=== PATIENT | female | born 1970 | race Caucasian/White ===

== ENCOUNTER 2020-08-22 09:53 | Outpatient (REF) | payer OTHER, SELFPAY ==
--- NOTE | 2020-08-22 | MM_ITS ---
EXAMINATION: MM SCREENING DIGITAL BREAST TOMOSYNTHESIS, BILATERAL CLINICAL INFORMATION: Screening. Asymptomatic. Family history in both mother and sister, both BRCA negative. The lifetime risk of breast cancer based on the Tyrer-Cuzick Model is 10%. COMPARISON: Mammography: 08/17/2019, 07/18/2016 TECHNIQUE: Digital breast tomosynthesis is performed in both the craniocaudal and mediolateral oblique views along with computer-aided detection (CAD). Synthesized 2D images are generated from the tomosynthesis. FINDINGS: There are scattered areas of fibroglandular density (ACR BI-RADS breast composition Category b). Breast tissue composition borders on heterogeneously dense. There is no significant mass or architectural abnormality. No abnormal calcifications. There is stable circumscribed nodularity mid 9:00 right breast and posterior right upper outer quadrant, likely intramammary nodes. The axilla and skin contours are unremarkable. IMPRESSION: No mammographic evidence of malignancy. ASSESSMENT: BI-RADS 2: Benign RECOMMENDATION: Routine annual mammography screening. This patient's information was entered into a reminder system with a target due date for their next mammogram.
== END 2020-08-22 09:54 | disposition home or self-care (01) ==
LOC: HO.MAMMO 09:53
PROVIDERS: PCP Internal Medicine; Visit Provider Internal Medicine
DX: Z12.31 Encounter for screening mammogram for malignant neoplasm of breast (principal)
CPT/HCPCS: 77063; 77067

== ENCOUNTER 2021-10-16 11:07 | Outpatient (REF) | payer BC, SELFPAY ==
--- NOTE | ~2021-10-16 | MM_ITS ---
EXAMINATION: MM SCREENING DIGITAL BREAST TOMOSYNTHESIS, BILATERAL CLINICAL INFORMATION: Screening. Asymptomatic. The lifetime risk of breast cancer based on the Tyrer-Cuzick Model is 28.9%. Additional annual screening with breast MRI may be of benefit in women with a Score of 20% or greater. COMPARISON: Mammography: August 22, 2020 and studies dating back to March 04, 2014 TECHNIQUE: Digital breast tomosynthesis is performed in both the craniocaudal and mediolateral oblique views along with computer-aided detection (CAD). Synthesized 2D images are generated from the tomosynthesis. FINDINGS: The breasts are heterogeneously dense, which may obscure small masses (ACR BI-RADS breast composition Category c). There are no significant masses, abnormal calcifications, or other abnormalities. MM/MM tomosynthesis screening BI IMPRESSION: There are no significant changes from prior study. ASSESSMENT: BI-RADS 1: Negative RECOMMENDATION: Routine annual mammography screening. This patient's information was entered into a reminder system with a target due date for their next mammogram.
== END 2021-10-16 11:08 | disposition home or self-care (01) ==
LOC: HO.MAMMO 11:07
PROVIDERS: PCP Internal Medicine; Visit Provider Internal Medicine
DX: Z12.31 Encounter for screening mammogram for malignant neoplasm of breast (principal)
CPT/HCPCS: 77063; 77067

== ENCOUNTER 2022-02-28 08:18 | Outpatient (REF) | payer BC, SELFPAY ==
[2022-02-28 11:17] LABS: MANUAL DIFF FLAG NO
[2022-02-28 11:27] LABS: Basophils Absolute Auto 0.1 X10*3/uL (0.0-0.2); Eosinophils Absolute Auto 0.2 X10*3/uL (0.0-0.4); Eosinophils Percent Auto 3.3 % (0-4); Hematocrit 39.9 % (37.0-47.0); Hemoglobin 13.7 g/dl (12.0-16.0); Imm Gran Abs Auto 0.01 X10*3/uL (0.00-0.03); Imm Gran Pct Auto 0.2 % (0.0-0.4); Lymphocytes Absolute Auto 1.4 X10*3/uL (1.2-4.9); Lymphocytes Percent Auto 22.4 % (20-40); Mean Corpuscular HGB Conc 34.3 g/dl (31.0-35.0); Mean Corpuscular Hemoglobin 31.4 pg (27.0-33.0); Mean Corpuscular Volume 91.3 fL (80.0-98.0); Mean Platelet Volume 9.8 fL (9.4-12.3); Monocytes Absolute Auto 0.6 X10*3/uL (0.1-1.2); Monocytes Percent Auto 9.1 % (2-11); Neutrophils Absolute Auto 3.9 x10*3/uL (2.0-8.3); Platelet Count 329 X10*3/uL (160-400); Red Blood Count 4.37 X10*6/uL (4.20-5.50); White Blood Count 6.2 X10*3/uL (4.8-10.8)
[2022-02-28 11:44] LABS: Alanine Aminotransferase 17 U/L (0-31); Albumin Level 4.1 g/dL (3.5-5.0); Alkaline Phosphatase 80 U/L (39-117); Anion Gap 15 (12-20); Aspartate Amino Transferase 19 U/L (5-31); Bilirubin Total 0.6 mg/dL (0.0-1.0); Blood Urea Nitrogen 11 mg/dL (9-16); Calcium 9.6 mg/dL (8.4-10.2); Carbon Dioxide 22 mmol/L (22-29); Chloride 105 mmol/L (96-108); Cholesterol 206 mg/dL; Estimated Glomerular Filt Rate > 60; Glucose Fasting 107 mg/dL (60-99); HDL Cholesterol 42 mg/dL; LDL Cholesterol Calculated 149 mg/dl; Sodium 138 mmol/L (135-145); Triglycerides 76 mg/dL
[2022-02-28 12:09] LABS: Thyroid Stimulating Hormone 3.15 uIU/mL (0.32-4.0)
== END 2022-02-28 08:19 | disposition home or self-care (01) ==
LOC: HO.HMGCLDS 08:18
PROVIDERS: Visit Provider Internal Medicine
DX: Z00.00 Encounter for general adult medical examination without abnormal findings (principal); E03.9 Hypothyroidism, unspecified
CPT/HCPCS: 36415; 80053; 80061; 84439; 84443; 85025

== ENCOUNTER 2022-11-28 10:18 | Outpatient (REF) | payer BC, SELFPAY ==
--- NOTE | ~2022-11-28 | MM_ITS ---
EXAMINATION: MM SCREENING DIGITAL BREAST TOMOSYNTHESIS, BILATERAL CLINICAL INFORMATION: Screening. Asymptomatic. The lifetime risk of breast cancer based on the Tyrer-Cuzick Model is 26.5%. Additional annual screening with breast MRI may be of benefit in women with a lifetime score of 20% or greater. COMPARISON: Mammography: October 16, 2021 and studies dating back to December 18, 2012 TECHNIQUE: Digital breast tomosynthesis is performed in both the craniocaudal and mediolateral oblique views along with computer-aided detection (CAD). Synthesized 2D images are generated from the tomosynthesis. FINDINGS: The breasts are heterogeneously dense, which may obscure small masses (ACR BI-RADS breast composition Category c). There are no new significant masses, abnormal calcifications, or other abnormalities. MM/MM tomosynthesis screening BI IMPRESSION: No significant changes ASSESSMENT: BI-RADS 1: Negative RECOMMENDATION: Routine annual mammography screening. This patient's information was entered into a reminder system with a target due date for their next mammogram.
== END 2022-11-28 10:19 | disposition home or self-care (01) ==
LOC: HO.MAMMO 10:18
PROVIDERS: PCP Internal Medicine; Visit Provider Internal Medicine
DX: Z12.31 Encounter for screening mammogram for malignant neoplasm of breast (principal)
CPT/HCPCS: 77063; 77067

== ENCOUNTER 2024-01-09 11:14 | Outpatient (REF) | payer BC, SELFPAY | END 2024-01-09 11:15 | disposition home or self-care (01) | LOC: HO.MAMMO 11:14 | PROVIDERS: PCP Internal Medicine; Visit Provider Internal Medicine | DX: Z12.31 Encounter for screening mammogram for malignant neoplasm of breast (principal) | CPT/HCPCS: 77063; 77067 ==

== ENCOUNTER → 2024-01-09 11:15 | Outpatient (BNV) | payer BC, SELFPAY | PROVIDERS: PCP Internal Medicine; Visit Provider Radiology Diagnostic Radiology | DX: Z12.31 Encounter for screening mammogram for malignant neoplasm of breast (principal) | CPT/HCPCS: 77063; 77067 ==

== ENCOUNTER 2024-04-16 09:15 | Outpatient (REF) | payer BC, SELFPAY ==
[2024-04-16 10:47] LABS: MANUAL DIFF FLAG NO
[2024-04-16 11:01] LABS: Basophils Absolute Auto 0.1 X10*3/uL (0.0-0.2); Basophils Percent Auto 1.3 % (0-2); Eosinophils Absolute Auto 0.3 X10*3/uL (0.0-0.4); Eosinophils Percent Auto 5.6 % (0-4); Hemoglobin 13.3 g/dl (12.0-16.0); Imm Gran Abs Auto 0.01 X10*3/uL (0.00-0.03); Imm Gran Pct Auto 0.2 % (0.0-0.4); Lymphocytes Absolute Auto 1.6 X10*3/uL (1.2-4.9); Lymphocytes Percent Auto 30.3 % (20-40); Mean Corpuscular HGB Conc 34.1 g/dl (31.0-35.0); Mean Corpuscular Hemoglobin 30.6 pg (27.0-33.0); Mean Corpuscular Volume 89.7 fL (80.0-98.0); Mean Platelet Volume 9.6 fL (9.4-12.3); Monocytes Absolute Auto 0.3 X10*3/uL (0.1-1.2); Monocytes Percent Auto 6.4 % (2-11); Neutrophils Percent Auto 56.2 % (45-73); Platelet Count 335 X10*3/uL (160-400); Red Blood Count 4.35 X10*6/uL (4.20-5.50); Red Cell Distribution Width 11.8 % (11.0-16.0); White Blood Count 5.3 X10*3/uL (4.8-10.8)
[2024-04-16 11:49] LABS: Anion Gap 10 (12-20); Blood Urea Nitrogen 11 mg/dL (9-16); Calcium 9.7 mg/dL (8.4-10.2); Carbon Dioxide 28 mmol/L (22-29); Chloride 108 mmol/L (96-108); Cholesterol 211 mg/dL (<200); Estimated Glomerular Filt Rate > 60; Glucose Random 105 mg/dL (60-115); HDL Cholesterol 43 mg/dL (>40); LDL Cholesterol Calculated 149 mg/dL (<100); Potassium 3.7 mmol/L (3.3-5.1); Sodium 142 mmol/L (135-145); Triglycerides 98 mg/dL (<150)
[2024-04-16 11:50] LABS: Free T4 (Free Thyroxine) 0.86 ng/dL (0.71-1.85); Thyroid Stimulating Hormone 3.57 uIU/mL (0.32-4.0); Vitamin D 25-OH Total 27.9 ng/mL (>30)
== END 2024-04-16 09:16 | disposition home or self-care (01) ==
LOC: HO.HMGCLDS 09:15
PROVIDERS: PCP Internal Medicine; Visit Provider Internal Medicine
DX: Z00.00 Encounter for general adult medical examination without abnormal findings (principal); E78.00 Pure hypercholesterolemia, unspecified; E03.9 Hypothyroidism, unspecified
CPT/HCPCS: 36415; 80048; 80061; 82306; 84439; 84443; 85025

== ENCOUNTER 2024-04-20 11:29 | Outpatient (REF) | payer BC, SELFPAY ==
--- NOTE | ~2024-04-20 | XR_ITS ---
EXAMINATION: XR KNEE, LEFT CLINICAL INFORMATION: Osteoarthritis of left knee COMPARISON: None available. TECHNIQUE: Four views of the left knee. FINDINGS: There is significant narrowing of medial compartment of left knee joint with varus deformity of left knee and marginal spurring of the medial tibial plateau. There is spurring of the patella also. XR/XR knee LT 4V IMPRESSION: Marked degenerative changes in the medial compartment of left knee joint with varus deformity
== END 2024-04-20 11:30 | disposition home or self-care (01) ==
LOC: HO.XRAY 11:29
PROVIDERS: PCP Internal Medicine; Visit Provider Internal Medicine
DX: M25.662 Stiffness of left knee, not elsewhere classified (principal)
CPT/HCPCS: 73564

== ENCOUNTER 2024-08-12 09:53 | Outpatient (AMB) | payer BC, SELFPAY ==
--- NOTE | 2024-08-12 09:56 | A.OFFVIS_ITS ---
Vital Signs 08/12/24 09:57 Height 5 ft 8 in Weight 200 lb BMI 30.4 Intake Visit Reasons: New Pt - Left Knee Pain Intake Note: Natalya is a 54 year old female who presents today as a new patient with complaints of Left knee pain. She was referred by her PCP, Dr. Colindres. Patient reports that she has had ongoing left knee pain, she has pain with gait initiation after long periods of sitting or when waking. 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 No previous treatment. She takes Tylenol and Ibuprofen PRN pain. Allergies Penicillins Allergy (Verified 08/12/24 09:59) Hives HPI HPI New Pt - Left Knee Pain: Details: Natalya is a 54 year old female who presents today as a new patient with complaints of Left knee pain. She was referred by her PCP, Dr. Colindres. Patient reports that she has had ongoing left knee pain, she has pain with gait initiation after long periods of sitting or when waking. 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 No previous treatment. She takes Tylenol and Ibuprofen PRN pain. 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 Varus thrust with gait Office Procedures Joint Injection/Aspiration Joint Injection/Aspiration Details: Injected 1 mL of Decadron and 3 mL 1% lidocaine and 3 mL of 0.25% Marcaine. Site was prepped using aseptic technique. Patient tolerated the procedure well. Primary Site: left knee Approach Used: anterolateral Coding 95295 - Large joint Procedure code (CPT) selection complete Results Reviewed Results Reviewed: I personally reviewed relevant radiographs. Severe left knee varus pattern osteoarthritis Assessment & Plan Assessment & Plan (1) Osteoarthritis of left knee: Code(s): M17.12 - Unilateral primary osteoarthritis, left knee Category: Medical Plan: This is a 54-year-old woman with left knee osteoarthritis. Other than her poor gait mechanics her pain is not terrible and she feels like she is wants to continue working rather than intervene surgically. I think this is reasonable and mantilla given her age. I injected her left knee today. She can follow up in 3 months for repeat injections if so desired. (2) Varus deformity of knee: Code(s): M21.169 - Varus deformity, not elsewhere classified, unspecified knee Category: Medical Plan: Her primary problem is the severity of her varus. There is no bone loss and I do not think this is actively getting worse but I do think at some point in time she will require arthroplasty. I explained this to her. Coding Level of Care Code New Pt Level 3 (07276) Complex EM visit Add On G2211 Diagnoses Osteoarthritis of left knee M17.12 Varus deformity of knee M21.169 CPT Codes Coding - 48520 Large joint: 16985 - Large joint ([id number])
[2024-08-12 09:57] VITALS: BMI 30.4
== END 2024-08-12 10:42 | disposition home or self-care (01) ==
PROVIDERS: PCP Internal Medicine; Visit Provider Orthopaedic Surgery
DX: M17.12 Unilateral primary osteoarthritis, left knee (principal); M21.169 Varus deformity, not elsewhere classified, unspecified knee
CPT/HCPCS: 20610; 99203

== ENCOUNTER → 2024-08-12 09:53 | Outpatient (BNVA) | payer BC, SELFPAY | PROVIDERS: PCP Internal Medicine; Visit Provider Orthopaedic Surgery | DX: M17.12 Unilateral primary osteoarthritis, left knee (principal); M21.162 Varus deformity, not elsewhere classified, left knee | CPT/HCPCS: 20610; J0665; J1100; J2003 ==

== ENCOUNTER 2024-11-18 09:14 | Outpatient (AMB) | payer BC, SELFPAY ==
[2024-11-18 09:16] VITALS: BMI 30.4
--- NOTE | 2024-11-18 09:16 | MHC.OFFVIS ---
Vital Signs 11/18/24 09:16 Height 5 ft 8 in Weight 200 lb BMI 30.4 Intake Visit Reasons: OV-Left Knee Pain/OA-3 month follow up Intake Note: Natalya is a 54 year old female who presents today for a follow up of her left knee OA with varus deformity. Last Injection: 08/12/2024. Patient reports that this injection was helpful for about a month, she continues to have some mild discomfort with walking. She no longer is having pain at night. Allergies Penicillins Allergy (Verified 08/12/24 09:59) Hives HPI HPI OV-Left Knee Pain/OA-3 month follow up: Details: Natalya is a 54 year old female who presents today for a follow up of her left knee OA with varus deformity. Last Injection: 08/12/2024. Patient reports that this injection was helpful for about a month, she continues to have some mild discomfort with walking. She no longer is having pain at night. Overall her pain is significantly less than it was at last visit. She works all day and has pain at the end of the night and pain after sitting for extended periods of time but it is tolerable. She tries to exercise but has a busy schedule. 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 Varus thrust with gait Office Procedures Joint Inj/Aspir; Non-Pain Clin Joint Injection/Drain Details: Injected 1 mL of Decadron and 3 mL 1% lidocaine and 3 mL of 0.25% Marcaine. Site was prepped using aseptic technique. Patient tolerated the procedure well. Shoulders, Hips, Knees, Knee Large Joint Injection : Left Knee Coding Procedure code (CPT) selection complete Assessment & Plan Assessment & Plan (1) Osteoarthritis of left knee: Code(s): M17.12 - Unilateral primary osteoarthritis, left knee Category: Medical Plan: Left knee osteoarthritis. We discussed treatment options including bracing, NSAIDs, at exercise, surgery. I injected her left knee today. We will see her back in 4 months. Coding Level of Care Code Est Pt Level 3 (70600) Diagnoses Osteoarthritis of left knee M17.12 CPT Codes Shoulders, Hips, Knees, - Knee Large Joint Injection : Left Knee ([id number])
== END 2024-11-18 10:07 | disposition home or self-care (01) ==
PROVIDERS: PCP Internal Medicine; Visit Provider Orthopaedic Surgery
DX: M17.12 Unilateral primary osteoarthritis, left knee (principal)
CPT/HCPCS: 20610; 99213

== ENCOUNTER → 2024-11-18 09:14 | Outpatient (BNVA) | payer BC, SELFPAY | PROVIDERS: PCP Internal Medicine; Visit Provider Orthopaedic Surgery | DX: M17.12 Unilateral primary osteoarthritis, left knee (principal) | CPT/HCPCS: 20610; J0665; J1100; J2003 ==

== ENCOUNTER 2025-02-17 08:32 | Outpatient (REF) | payer BC, SELFPAY | END 2025-02-17 08:33 | disposition home or self-care (01) | LOC: HO.MAMMO 08:32 | PROVIDERS: PCP Internal Medicine; Visit Provider Internal Medicine | DX: Z12.31 Encounter for screening mammogram for malignant neoplasm of breast (principal) | CPT/HCPCS: 77063; 77067 ==

== ENCOUNTER → 2025-02-17 08:45 | Outpatient (BNV) | payer BC, SELFPAY | PROVIDERS: PCP Internal Medicine; Visit Provider Internal Medicine | DX: Z12.31 Encounter for screening mammogram for malignant neoplasm of breast (principal) | CPT/HCPCS: 77063; 77067 ==

== ENCOUNTER 2025-03-24 10:21 | Outpatient (AMB) | payer BC, SELFPAY ==
--- NOTE | 2025-03-24 10:30 | MHC.OFFVIS ---
Intake Visit Reasons: OV-Left Knee OA last inj 11/18/24 Intake Note: Natalya is a 55 year old female who presents today for a follow up of her Left Knee OA with Varus Deformity. Last injection 11/18/2024. Patient reports that the last injection did not help her and has had side effects of nausea and dizziness. She is interested in talking about alternative treatment option. Allergies Penicillins Allergy (Verified 08/12/24 09:59) Hives HPI HPI OV-Left Knee OA last inj 11/18/24: Details: The patient is a 55-year-old female presenting with left knee pain due to osteoarthritis. She reports increased pain after prolonged sitting, alleviated slightly by a prior injection, with only limited improvement. The patient walks up to an hour, spending eight hours daily on her feet for work. She describes functional difficulty walking, exacerbated in the morning. Severe arthritis is noted on imaging, with varus thrust observed. She prefers to delay surgical intervention but deems it necessary soon. Contemplation of non-surgical management includes gel injections and bracing. The patient inquires about lifestyle changes but indicates limited time due to work. 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 Varus thrust with gait Assessment & Plan Assessment & Plan (1) Osteoarthritis of left knee: Code(s): M17.12 - Unilateral primary osteoarthritis, left knee Category: Medical Plan: Severe osteoarthritis confirmed by imaging. Recommend intra-articular gel injections as insurance permits. Plan for an unloading brace for stability during activity. Progressive arthritis warrants eventual total knee replacement, discussed risks and benefits, delay per patient preference. Follow-up for brace fitting, suggested periknee muscle strengthening for improved symptoms, time permitting. Coding Level of Care Code Est Pt Level 3 (78291) Diagnoses Osteoarthritis of left knee M17.12
== END 2025-03-24 11:14 | disposition home or self-care (01) ==
LOC: HO.HOS 10:22
PROVIDERS: PCP Internal Medicine; Visit Provider Orthopaedic Surgery
DX: M17.12 Unilateral primary osteoarthritis, left knee (principal)
CPT/HCPCS: 99213

== ENCOUNTER → 2025-03-24 10:21 | Outpatient (BNVA) | payer BC, SELFPAY | PROVIDERS: PCP Internal Medicine; Visit Provider Orthopaedic Surgery ==

== ENCOUNTER 2025-05-23 08:54 | Outpatient (AMB) | payer BC, SELFPAY ==
[2025-05-23 09:22] VITALS: BP 122/76; PULSE 98; TEMP 37.2; O2SAT 97; BMI 29.8
--- NOTE | 2025-05-23 09:22 | AM.OFFWIN_ITS ---
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 Pt reports pain located on the back of Thigh, knee and Calf. Describes the pain as sharp and pressure.She does have severe OA left Knee and sees [facility]. She did receive two Cortisone injections with no relief. She is waiting to have Gel Injections - pending Insurance coverage. She has been using Ice/Hot with minimal relief. 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 - [employer] Review of Systems Const All systems reviewed & are unremarkable except as noted in HPI and below Physical Exam Vital Signs: Last Vital Signs Temp 99.0 F 05/23/25 09:22 Pulse 98 05/23/25 09:22 BP 122/76 05/23/25 09:22 Pulse Ox 97 05/23/25 09:22 Oxygen Delivery Method Room Air 05/23/25 09:22 BMI result Body Mass Index 29.8 Const General: no acute distress Nutritional Appearance: obese Orientation/consciousness: patient oriented x3 Neuro General: patient oriented x3, gait normal and moves all extremities Extrem Left lower extremity: knee Details: normal to inspection, tenderness Location: of the patella and normal ROM and lower leg Details: normal to inspection, tenderness and no edema; no erythema Assessment & Plan Assessment & Plan (1) Osteoarthritis of left knee: Code(s): M17.12 - Unilateral primary osteoarthritis, left knee Qualifiers: Osteoarthritis type: primary Qualified Code(s): M17.12 - Unilateral primary osteoarthritis, left knee Plan: Ordered NSAIDs and Acetaminophen. Diclofenac Gel Continue F/U with Orthopedics. Ordered Knee Brace. Medications: New acetaminophen 1,000 mg (2 x 500 mg) PO Q6H 30 caps 0RF pain M17.12 - Unilateral primary osteoarthritis, left knee diclofenac potassium 50 mg PO BID 14 tabs 0RF 7 days M17.12 - Unilateral primary osteoarthritis, left knee Coding Level of Care Code Est Pt Level 4 (85187) Diagnoses Primary osteoarthritis of left knee M17.12 Osteoarthritis type: primary Time Spent (min) 20
== END 2025-05-23 10:35 | disposition home or self-care (01) ==
PROVIDERS: PCP Internal Medicine; Visit Provider Nurse Practitioner Family
DX: M17.12 Unilateral primary osteoarthritis, left knee (principal)

== ENCOUNTER 2025-05-26 08:41 | Outpatient (AMB) | payer BC, SELFPAY ==
--- NOTE | 2025-05-26 08:46 | MHC.OFFVIS ---
Intake Visit Reasons: OV-severe knee OA, LT knee-disc possible surgery Intake Note: Natalya is a 55 year old female who presents today for a follow up of her Left Knee OA. Patient reports that she was doing well but on friday her pain started to increase with pain running down the leg to the foot. She was seen at urgent care where they provided her with a brace. She does feel that the brace is helping with stability. She does not recall any injury. Allergies Penicillins Allergy (Verified 05/26/25 08:49) Hives HPI HPI OV-severe knee OA, LT knee-disc possible surgery: Details: Natalya comes in today with continued left knee pain. I saw her previously a few months ago and she had minimal pain but has had a severe gait disturbance for some time. She is adamant that she can not stop working at this time and consequently has hesitated to undergo surgical intervention. Now she comes in today complaining of hamstring tightness and pain in his walking even worse. She states that her hamstring is cramping up at night she is having difficulty sleeping is very frustrated. 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 Her gait is extremely poor she has a severe varus thrust and leans over her left leg significantly when she ambulates. On examination of her hamstring she has tightness in the body of the hamstring without any palpable defect. Her deformity is not correctable. Results Reviewed Results Reviewed: I personally reviewed relevant radiographs. Severe varus abnormality with loss of medial joint space left knee. Assessment & Plan Assessment & Plan (1) Varus deformity of knee: Code(s): M21.169 - Varus deformity, not elsewhere classified, unspecified knee Category: Medical Plan: Jamar is a 55-year-old woman with severe varus deformity and arthritis of her left knee. She can not ambulate in any normal fashion and this is causing problems with her back and her hamstring and her energy expenditure. She has exhausted by the end of the day and not sleeping. Think that it is clear she would benefit from arthroplasty. I discussed this with her again. I strongly recommend that she consider it and that she would have to take off approximately 6 weeks at a minimum. I also discussed the risks, benefits and alternatives including , but not limited to, the risk of infection, need further surgery, stiffness, aseptic loosening, medical complications associated with surgery such as blood clots, pulmonary emboli or cardiopulmonary complications. She expressed understanding and would like to proceed forward. In the meantime I have written her a prescription physical therapy and recommend hydration and that she use a cane to help her ambulate. (2) Osteoarthritis of left knee: Code(s): M17.12 - Unilateral primary osteoarthritis, left knee Category: Medical Qualifiers: Osteoarthritis type: primary Qualified Code(s): M17.12 - Unilateral primary osteoarthritis, left knee Plan: See above Orders: Orders PT Evaluation and Treatment Today M21.169 - Varus deformity, not elsewhere classified, unspecified knee, M62.89 - Other specified disorders of muscle Coding Level of Care Code Est Pt Level 4 (48310) Diagnoses Varus deformity of knee M21.169 Primary osteoarthritis of left knee M17.12 Osteoarthritis type: primary
== END 2025-05-26 09:58 | disposition home or self-care (01) ==
LOC: HO.HOS 08:41
PROVIDERS: PCP Internal Medicine; Visit Provider Orthopaedic Surgery
DX: M21.162 Varus deformity, not elsewhere classified, left knee (principal); M17.12 Unilateral primary osteoarthritis, left knee
CPT/HCPCS: 99214

== ENCOUNTER 2025-06-14 09:00 | Outpatient (RCR) | payer BC, SELFPAY ==
--- NOTE | 2025-06-08 08:38 | MHC.PT.EP ---
[facility] [place] Office [place] Office [place] Office [address] Marla Schumacher [address] [phone] F: [phone] F: [phone] F: [phone] F: [phone] Physical Therapy Plan of Care Date of Evaluation: 06/08/25 Date of Surgery: n/a Diagnosis: hamstring tightness of L LE Assessment: Patient is a 55 year old female presenting to PT with complaints of pain in L hamstring. Pt reports onset of pain began about 1 month ago due to insidious onset but notes she does have severe OA in the L knee causing her to have antalgic gait. She presents today with impairments in pain, soft tissue restrictions, tingling, hip strength, knee strength. 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 Clinical presentation today is most consistent with signs and sx associated with L hamstring tightness and pt will benefit from skilled PT 2 week x 4 weeks to address the following problems and impairments noted upon evaluation: pain, soft tissue restrictions, tingling, hip strength, knee strength. These problems limit the patient with the following functional activities: work, standing, ambulating, stair negotiation, ADLs. The prescribed treatment plan of care is medically necessary. Co-morbidities of L knee OA were identified and taken into considerations of plan of care. Pt was educated on HEP, role of PT, prognosis, POC. Frequency and Duration: The patient will be seen 2 x week x 4 weeks Short Term Goals: Pt will demonstrate improved hip MMT strength by 1/3 grade in 2 weeks. Pt will report less tingling in 2 weeks. Pt will demonstrate improved knee MMT strength on L in 2 weeks. Jail Goals: Pt will demonstrate improved LEFI score by 9 points in 4 weeks for improved functional mobility. Pt will demonstrate ability to ambulate with less hs pain in 4 weeks for return to PLOF. Pt will demonstrate improved tolerance to work standing in terms of hs pain in 4 weeks for return to PLOF. Treatment Plan: Modalities to reduce pain, spasms and effusion. Manual therapy to restore motion and function. Therapeutic exercise to improve strength and flexibility. Neuromuscular re-education for posture and balance. Therapeutic activities to return to functional activities of daily living. Electronically signed by: Jennifer Mathis, PT, DPT, ATC Please sign and return to therapist. Thank you for your referral.
--- NOTE | 2025-07-26 07:35 | MHC.PT.DC ---
[facility] [place] Office [place] Office [place] Office [address] [phone] F: [phone] F: [phone] F: [phone] F: [phone] Physical Therapy Discharge Report Diagnosis: hamstring tightness of L LE Date of Surgery: n/a Date of Evaluation: 06/08/25 Date of Discharge: 07/26/25 Treatments to Date: 2 Cancellations to Date: 2 No Shows to Date: 0 Discharge Status: Discharge Summary: Pt has not attended skilled PT in >30 days so therefore to be d/c per policy. Electronically signed by: Jennifer Mathis, PT, DPT, ATC Please sign and return to therapist. Thank you for your referral.
== END 2025-07-26 07:35 | disposition home or self-care (01) ==
LOC: HO.PTCHIC 09:00
PROVIDERS: PCP Internal Medicine; Visit Provider Orthopaedic Surgery
DX: M21.162 Varus deformity, not elsewhere classified, left knee (principal); M62.89 Other specified disorders of muscle
CPT/HCPCS: 97110; 97140; 97161

== ENCOUNTER 2025-07-27 06:08 | Outpatient (REF) | payer BC, SELFPAY ==
[2025-07-27 10:22] LABS: MANUAL DIFF FLAG NO
[2025-07-27 10:36] LABS: Hematocrit 36.0 % (37.0-47.0); Hemoglobin 12.3 g/dl (12.0-16.0); Imm Gran Abs Auto 0.00 X10*3/uL (0.00-0.03); Imm Gran Pct Auto 0.0 % (0.0-0.4); Lymphocytes Absolute Auto 1.2 X10*3/uL (1.2-4.9); Mean Corpuscular HGB Conc 34.2 g/dl (31.0-35.0); Mean Corpuscular Hemoglobin 30.8 pg (27.0-33.0); Mean Corpuscular Volume 90.2 fL (80.0-98.0); NRBC Abs Auto 0.000 X10*3/uL (0.0-0.012); NRBC Pct Auto 0.0 /100WBC (0.0-0.2); Platelet Count 354 X10*3/uL (160-400); Red Blood Count 3.99 X10*6/uL (4.20-5.50); White Blood Count 3.9 X10*3/uL (4.8-10.8)
[2025-07-27 10:43] LABS: Alanine Aminotransferase 18 U/L (0-31); Albumin Level 4.4 g/dL (3.5-5.0); Alkaline Phosphatase 78 U/L (39-117); Anion Gap 11 (12-20); Aspartate Amino Transferase 24 U/L (5-31); Blood Urea Nitrogen 12 mg/dL (9-16); Calcium 9.4 mg/dL (8.4-10.2); Carbon Dioxide 25 mmol/L (22-29); Chloride 110 mmol/L (96-108); Cholesterol 180 mg/dL (<200); Estimated Glomerular Filt Rate > 60; HDL Cholesterol 36 mg/dL (>40); INTERNATIONAL NORM RATIO 1.0 (0.9-1.1); Potassium 3.7 mmol/L (3.3-5.1); Prothrombin Time 11.0 SEC (10.9-12.4); Sodium 142 mmol/L (135-145); Total Protein 6.9 g/dL (6.5-8.0); Triglycerides 95 mg/dL (<150)
[2025-07-27 10:46] LABS: Partial Thromboplastin Time 34.8 SEC (26.7-34.1)
== END 2025-07-27 06:09 | disposition home or self-care (01) ==
LOC: HO.HMGCLDS 06:08
PROVIDERS: PCP Physician Assistant Medical; Visit Provider Physician Assistant Medical
DX: Z01.818 Encounter for other preprocedural examination (principal); E78.5 Hyperlipidemia, unspecified
CPT/HCPCS: 36415; 80053; 80061; 84443; 85025; 85610; 85730

== ENCOUNTER 2025-08-01 11:01 | Outpatient (AMB) | payer BC, SELFPAY ==
--- NOTE | 2025-08-01 11:01 | MHC.PC.OV ---
Vital Signs 08/01/25 11:03 Height 5 ft 8 in Weight 194 lb BMI 29.5 BP 134/72 Blood Pressure Location Rt brachial Position Sitting Respiration 17 Pulse 89 Pulse Source Pulse Oximeter Temp 97.6 F Temp Source Temporal Artery Scan Pulse Oximetry (%) 98 Oxygen Delivery Method Room Air Intake Visit Reasons: Annual EXAM/PRE-OP - see comments Dental Ceramist Helper Required: No Accompanied by: Self / Same As Patient Allergies Penicillins Allergy (Verified 08/01/25 11:01) Hives Medication List - Last Reconciled 08/01/25 by RAMO Corral cholecalciferol (vitamin D3) 50 mcg PO DAILY [Folding Front Wheeled walker Duration: 99 days] levothyroxine 50 mcg PO DAILY Tobacco use date assessed: 08/01/25 Dental Screening Dental Screen Date: 08/01/25 Did you have a dental visit in the last 12 months?: Yes Did you have a dental problem in the last 6 months where you did not have access to dental care?: Yes Was dental information given to patient?: Patient has dentist HPI HPI Comments History of Present Illness Details 55 year old female with Hypothyroidism, and left knee pain here to establish care and for Pre Op. Patient is on Levothyroxine 50mcg. Her TSH was 2.39 07/27/25. Her labs did also show a mild anemia but were otherwise normal. She has osteoarthritis of her left knee. She is scheduled for a total knee replacement on 09/27/25 with Sanket Webster MD. She has not had any prior surgeries. She has no history of bleeding issues. Her BP today was 134/72. She has been taking Omeprazole for GERD symptoms. She is also on Vitamin D 3. Her last PAP was several years ago. She has never had an abnormal PAP. She had a mammogram 02/17/25. She has never had colon cancer screening. She is open to doing a cologuard. 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 1. Little interest or pleasure in doing things: not at all 2. Feeling down, depressed, or hopeless: not at all 3. Trouble falling or staying asleep, or sleeping too much: several days 4. Feeling tired or having little energy: not at all 5. Poor appetite or overeating: not at all 6. Feeling bad about yourself - or that you are a failure or have let yourself or your family down: not at all 7. Trouble concentrating on things, such as reading the newspaper or watching television: not at all 8. Moving or speaking so slowly that other people could have noticed. Or the opposite - being so fidgety or restless that you have been moving around a lot more than usual: not at all 9. Thoughts that you would be better off or of hurting yourself in some way: not at all Total score: 1 Source: Developed by Drs. Eren Hoffman, Eliane Titus, Momo Sheets and colleagues, with an educational jose from [employer]. Thrive Questionnaire Date Thrive assessed: 08/01/25 I am a: Patient What is your living situation today?: I have a steady place to live Within the past 12 months, did the food you bought not last and you didn't have the money to get more?: Never true Within the past 12 months, did you worry whether your food would run out before you got money to buy more?: Never true Do you have trouble paying for medicines?: No Do you have trouble getting transportation to medical appointments?: No Do you have trouble paying your heating and electricity bill?: No Do you have trouble taking care of your child, family member or friend?: No Do you have trouble with day-to-day activities such as bathing, preparing meals, shopping, managing finances, etc.?: No Are you currently unemployed and looking for a job?: No Are you interested in more education?: No THRIVE Score: 0 AUDIT C Alcohol Use Questionnaire (AUDIT-C) 1. How often do you have a drink containing alcohol?: Never 3. How often do you have six or more drinks on one occasion?: Never Total Score: 0 BECCA-7 AMB Questionnaire BECCA-7 Date BECCA - 7 assessed: 08/01/25 Feeling nervous, anxious, or on edge: 0 = Not at all Not being able to stop or control worryin = Not at all Worrying too much about different things: 0 = Not at all Trouble relaxin = Not at all Being so restless that it is hard to sit still: 0 = Not at all Becoming easily annoyed or irritable: 0 = Not at all Feeling afraid as if something awful might happen: 0 = Not at all Total BECCA-7 score (0-4 normal; 5-9 mild; 10-14 moderate; 15-21 severe): 0 Source: Developed by Drs. Eren Hoffman, Eliane Titus, Momo Sheets and colleagues, with an educational jose from [employer]. Review of Systems Const Details: CONSTITUTIONAL No Chills No Fever No Weight loss No fatigue No generalized weakness SKIN No itching No skin lesions EYES No change in visual acuity No eye pain No red eye HEAD AND NECK No dizziness No headache No neck pain EAR/NOSE/MOUTH/THROAT No earache No sinus pain No congestion No hoarseness No sore throat RESPIRATORY No cough No shortness of breath No wheezing CARDIOVASCULAR No chest pain No dyspnea No palpitations No peripheral edema No Syncope GASTROINTESTINAL No abdominal pain No constipation No diarrhea Heartburn- controlled on Omeprazole No loss of appetite No nausea No vomiting GENITOURINARY No dysuria No hematuria No urinary frequency No urinary urgency ENDOCRINE No cold intolerance No excessive hunger No excessive thirst No change in hair texture MUSCULOSKELETAL No back pain Left knee pain No swelling No myalgias IMMUNOLOGICAL/ALLERGIC No congestion No itchy eyes No itchy nose No rhinitis No watery eyes HEMATOLOGIC No bleeding tendencies No bruising No fatigue LYMPHATIC No swollen lymph nodes NEUROLOGICAL No memory loss No paresthesias No focal weakness PSYCHIATRIC No anxiety No depression No sleeping problems No substance abuse No suicidal ideation Physical exam (Primary Care) Vital Signs: Last Vital Signs Temp 97.6 F 08/01/25 11:03 Pulse 89 08/01/25 11:03 Resp 17 08/01/25 11:03 BP 134/72 08/01/25 11:03 Pulse Ox 98 08/01/25 11:03 Oxygen Delivery Method Room Air 08/01/25 11:03 BMI result Body Mass Index 29.5 GENERAL Well Developed, Overweight, In no acute distress HEENT Head- Normocephalic, atraumatic Eyes- PERRLA, EOMI, Conjuctiva-WNL, Lids-WNL Ears- Canals- Clear, TMs- WNL Nose-Straight, Nares Patent OroPharynx-Mouth WNL, Tongue- no lesions, throat no erythema or exudate Neck- Supple, no lymphadenopathy, thyroid WNL CARDIOVASCULAR Heart- Regular rate and Rhythm without murmur Extremities- No edema RESPIRATORY Normal chest movement, clear to auscultation ABDOMINAL/GI Nondistended, soft, nontender, normal bowel sounds, no masses, no hepatosplenomegaly GENITOURINARY No CVA tenderness BACK Straight, normal ROM, mild tenderness in left lateral thoracic with some muscle tightness MUSCULOSKELETAL left knee pain and swelling VASCULAR No JVD, Dorasalis pedis and Posterior Tibialis pulses normal and symmetrical DERMATOLOGY No rashes, no significant skin lesions, skin turgor WNL NEUROLOGICAL Cranial Nerves 11-x11 grossly intact, gait WNL, Coordination WNL, Muscle strength normal and Symmetrical, DTR normal and symmetrical, Light touch sensation intact PSYCHIATRIC Mood and affect WNL, Oriented to person, place and time Tobacco/Smoking Status: Tobacco use Status Tobacco use date assessed 08/01/25 08/01/25 11:04 Patient Tobacco Use Status Never used Tobacco 08/01/25 11:04 e-Cigarette/Vaping Use Never Used 08/01/25 11:10 Results Reviewed Results Reviewed: Labs and mammogram reviewed EKG was normal Coding Level of Care Code Established Pt Est Pt Level 4 (79058) Patient Type Established Diagnoses Pre-op evaluation Z01.818 Primary osteoarthritis of left knee M17.12 Osteoarthritis type: primary Hypothyroidism E03.9 GERD without esophagitis K21.9 Mild anemia D64.9 Time Spent (min) 35 Comment Time spent on chart review, medication reconciliation, results review, H&P, patient ed Assessment & Plan Assessment & Plan (1) Pre-op evaluation: Code(s): Z01.818 - Encounter for other preprocedural examination Plan: Patient is scheduled for Total knee replacement on 09/27/25. Reviewed medications with patient. Patient is OK for total knee. (2) Osteoarthritis of left knee: Code(s): M17.12 - Unilateral primary osteoarthritis, left knee Category: Medical Qualifiers: Osteoarthritis type: primary Qualified Code(s): M17.12 - Unilateral primary osteoarthritis, left knee Plan: Patient is scheduled for left total knee replacement on 09/27/25. (3) Hypothyroidism: Comment: TSH was 2.39 on 07/27 Code(s): E03.9 - Hypothyroidism, unspecified Category: Medical Plan: Controlled. Patient will continue current medications. Will monitor. Patient will follow up in 3-4 months (4) GERD without esophagitis: Code(s): K21.9 - Gastro-esophageal reflux disease without esophagitis Category: Medical Plan: Will continue Omeprazole. Patient to follow up in 3-4 months or sooner if symptoms persist or worsen. (5) Mild anemia: Code(s): D64.9 - Anemia, unspecified Category: Medical Plan: Will give Multivitamin with Iron. Patient to follow up in 3-4 months or sooner if symptoms persist or worsen. Medications: New cholecalciferol (vitamin D3) 50 mcg PO DAILY 90 caps 3RF omeprazole 20 mg PO DAILY 90 caps 3RF multivitamin-ferrous sulfate 18 mg iron (One Daily Multivitamin with Iron) with food 1 tab PO DAILY 90 tabs 0RF levothyroxine 50 mcg PO DAILY 90 tabs 1RF
[2025-08-01 11:03] VITALS: BP 134/72; PULSE 89; RESP 17; TEMP 36.4; O2SAT 98; BMI 29.5
== END 2025-08-01 12:15 | disposition home or self-care (01) ==
PROVIDERS: PCP Physician Assistant Medical; Visit Provider Physician Assistant Medical
DX: M17.12 Unilateral primary osteoarthritis, left knee (principal); E03.9 Hypothyroidism, unspecified; K21.9 Gastro-esophageal reflux disease without esophagitis; D64.9 Anemia, unspecified; Z01.818 Encounter for other preprocedural examination

== ENCOUNTER → 2025-08-23 13:06 | Outpatient (BNVA) | payer BC, SELFPAY | PROVIDERS: PCP Physician Assistant Medical | DX: Z01.818 Encounter for other preprocedural examination (principal) ==

== ENCOUNTER 2025-09-07 14:11 | Outpatient (REF) | payer BC, SELFPAY ==
--- NOTE | ~2025-09-07 | CT_ITS ---
EXAMINATION: CT KNEE WITHOUT CONTRAST, LEFT CLINICAL INFORMATION: Unilateral primary osteoarthritis left knee. COMPARISON: None available. TECHNIQUE: Axial 2 mm thin imaging of left knee was performed as per [facility] protocol This CT examination was performed using dose optimization techniques as appropriate, variously including the following: *Automated exposure control *Adjustment of mA and/or kV according to patient size (this includes techniques or standardized protocols for targeted exams where dose is matched to indication/reason for exam; i.e. extremities or head) *Use of iterative reconstruction technique DLP: 492 mGy/cm. FINDINGS/ CT/CT knee LT wo IV con IMPRESSION: Imaging of left knee was performed as per [facility] protocol for Dr. Sanket Webster. No interpretation was needed. Electronically signed by: Morgan Falcon MD 09/07/2025 03:16 PM EDT
== END 2025-09-07 14:12 | disposition home or self-care (01) ==
LOC: HO.CT 14:11
PROVIDERS: PCP Physician Assistant Medical; Visit Provider Physician Assistant
DX: M17.12 Unilateral primary osteoarthritis, left knee (principal)
CPT/HCPCS: 73700

== ENCOUNTER → 2025-09-07 14:12 | Outpatient (BNV) | payer BC, SELFPAY | PROVIDERS: PCP Physician Assistant Medical; Visit Provider Radiology Diagnostic Radiology | DX: M17.12 Unilateral primary osteoarthritis, left knee (principal) | CPT/HCPCS: 73700 ==

== ENCOUNTER 2025-09-22 14:22 | Outpatient (AMB) | payer BC, SELFPAY ==
--- NOTE | 2025-09-22 14:41 | A.OFFVIS_ITS ---
Vital Signs 09/22/25 14:56 Height 5 ft 8 in Weight 194 lb BMI 29.5 Handedness Right Intake Visit Reasons: Pre-Op: L TKA w/NE 09/28/25 Intake Note: Natalya is a 55 year old female who presents today for a pre op appointment for her left total knee arthroplasty 09/28/25 NE. Patient was given the pain management forms to sign. Allergies Penicillins Allergy (Intermediate, Verified 09/22/25 14:56) Hives HPI HPI Pre-Op: L TKA w/NE 09/28/25: Details: The patient is a 55-year-old female with a history of end-stage osteoarthritis of the left knee who is scheduled for a total knee arthroplasty. They have experienced progressive knee pain for over 1 year. Pain is described as aching/sharp/throbbing, worsened by prolonged standing, walking, and stair climbing. Conservative treatments including physical therapy, NSAIDs, bracing, activity modification, and corticosteroid injections provided only temporary or minimal relief. The patient reports significant limitations in daily activities and decreased quality of life due to pain and stiffness. No recent history of trauma or infection. They are otherwise in their usual state of health. The patient was seen by her PCP Edith Sharpe PA-C, on 08/01/2025 and was medically cleared to proceed with left total knee arthroplasty. Of note, the patient was a bit anemic and therefore her PCP prescribed a multivitamin with iron at this appointment. Additionally, patient had her PAT testing on 08/29/2025: No recent illness, noCP/SOB, medically cleared by PCP on 08/01/2025, has never undergone anesthesia in the past,GERD controlled with daily PPI. EKG 07/2025 NSR HR:84. Allergy to PCN: Hives. 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 Antalgic gait. Severe varus deformity. Crepitus felt with range of motion. NVI. Psych Appearance: grossly normal Mental Status: mental status grossly normal Attitude: cooperative Assessment & Plan Assessment & Plan (1) Osteoarthritis of left knee: Code(s): M17.12 - Unilateral primary osteoarthritis, left knee Category: Medical Qualifiers: Osteoarthritis type: primary Qualified Code(s): M17.12 - Unilateral primary osteoarthritis, left knee Plan The patient is a 55-year-old female with a history of end-stage osteoarthritis of the left knee who is scheduled for a total knee arthroplasty. They have experienced progressive knee pain for over 1 year. Pain is described as aching/sharp/throbbing, worsened by prolonged standing, walking, and stair climbing. Conservative treatments including physical therapy, NSAIDs, bracing, activity modification, and corticosteroid injections provided only temporary or minimal relief. The patient reports significant limitations in daily activities and decreased quality of life due to pain and stiffness. No recent history of trauma or infection. They are otherwise in their usual state of health. The patient was seen by her PCP Edith Sharpe PA-C, on 08/01/2025 and was medically cleared to proceed with left total knee arthroplasty. Of note, the patient was a bit anemic and therefore her PCP prescribed a multivitamin with iron at this appointment. Additionally, patient had her PAT testing on 08/29/2025: No recent illness, noCP/SOB, medically cleared by PCP on 08/01/2025, has never undergone anesthesia in the past,GERD controlled with daily PPI. EKG 07/2025 NSR HR:84. Allergy to PCN: Hives. I discussed in detail the procedure and what to expect pre and post operatively. We discussed the risks, benefits and alternatives to the surgery as well as the rehabilitation course. The following topics were reviewed in detail with the patient: Risks: Risks include, but are not limited to infection, bleeding, blood clots, nerve injury, ongoing pain, ongoing swelling, ongoing stiffness, perioperative risk of injury to bones and soft tissues, prosthesis loosening or wear, anesthesia related complications, revision surgery, amputation, and mortality. Expected Benefits: Improved function, reduced pain, better quality of life. Alternatives: Continued non-operative treatment, joint injections, bracing, physical therapy or no surgery. Risks of not moving forward with surgery: Progression of joint disease and damage, worsening function, fracture, and/or pain. The patient had ample opportunity to ask questions. All questions were answered to the patient's satisfaction. The patient verbalized understanding and agreed to move forward with left total knee arthroplasty with Dr. Webster. The patient demonstrates understanding of the risks, benefits and alternatives. The surgical consent form was given to the patient for additional review and signed by the patient with myself as a witness. postoperative recovery notes: ASA for DVT ppx Out Patient P.T.: [facility] [place] - Order placed Walker obtained Anemia baseline: Labs 07/27/ H&H: 12.3/36.0 Orders: Orders XR knee LT 3V Today M25.569 - Pain in unspecified knee Type and Screen Today Z01.818 - Encounter for other preprocedural examination Basic Metabolic Panel Today Z01.818 - Encounter for other preprocedural examination Complete Blood Count no Diff Today Z01.818 - Encounter for other preprocedural examination Medications: Refilled [Folding Front Wheeled walker] Duration: 99 days 1 ea 0RF M17.12 - Unilateral primary osteoarthritis, left knee Coding Level of Care Code Global (76455) Diagnoses Primary osteoarthritis of left knee M17.12 Osteoarthritis type: primary
[2025-09-22 14:56] VITALS: BMI 29.5
== END 2025-09-22 15:14 | disposition home or self-care (01) ==
LOC: HO.HOS 14:22
PROVIDERS: PCP Internal Medicine; Visit Provider Physician Assistant
DX: M17.12 Unilateral primary osteoarthritis, left knee (principal)
CPT/HCPCS: 99024

== ENCOUNTER → 2025-09-22 14:25 | Outpatient (BNV) | payer BC, SELFPAY | PROVIDERS: PCP Physician Assistant Medical; Visit Provider Radiology Diagnostic Ultrasound | DX: M17.12 Unilateral primary osteoarthritis, left knee (principal) | CPT/HCPCS: 73562 ==

== ENCOUNTER 2025-09-22 15:32 | Outpatient (REF) | payer BC, SELFPAY ==
--- NOTE | ~2025-09-22 | XR_ITS ---
EXAMINATION: XR KNEE, LEFT CLINICAL INFORMATION: M25.569 - Pain in unspecified knee COMPARISON: None available. TECHNIQUE: Two views of the left knee. AP bilateral knees one view FINDINGS: Left knee: Severe medial compartment arthritis. Genu varus. Arthritis to a lesser degree in the lateral patellofemoral compartment. No acute fracture or dislocation. No effusion. No abnormal soft tissue calcification. Right knee: Mild-moderate medial compartment arthritis. XR/XR knee LT 3V IMPRESSION: Left knee: Severe medial compartment arthritis. Electronically signed by: Brannon Shepard MD 09/23/2025 11:49 AM ALF
[2025-09-22 17:14] LABS: Hematocrit 40.5 % (37.0-47.0); Hemoglobin 13.7 g/dl (12.0-16.0); Mean Corpuscular HGB Conc 33.8 g/dl (31.0-35.0); Mean Corpuscular Hemoglobin 31.1 pg (27.0-33.0); Mean Corpuscular Volume 92.0 fL (80.0-98.0); NRBC Abs Auto 0.000 X10*3/uL (0.0-0.012); NRBC Pct Auto 0.0 /100WBC (0.0-0.2); Platelet Count 327 X10*3/uL (160-400); Red Blood Count 4.40 X10*6/uL (4.20-5.50); White Blood Count 5.8 X10*3/uL (4.8-10.8)
[2025-09-22 18:14] LABS: Anion Gap 13 (12-20); Blood Urea Nitrogen 10 mg/dL (9-16); Calcium 9.6 mg/dL (8.4-10.2); Carbon Dioxide 26 mmol/L (22-29); Chloride 107 mmol/L (96-108); Estimated Glomerular Filt Rate > 60; Potassium 3.7 mmol/L (3.3-5.1); Sodium 142 mmol/L (135-145)
== END 2025-09-22 15:33 | disposition home or self-care (01) ==
LOC: HO.HOSX 15:32
PROVIDERS: PCP Physician Assistant Medical; Visit Provider Physician Assistant
DX: Z01.818 Encounter for other preprocedural examination (principal); M17.12 Unilateral primary osteoarthritis, left knee
CPT/HCPCS: 36415; 73562; 80048; 85027

== ENCOUNTER 2025-09-28 10:51 | Day surgery (SDC) | payer BC, SELFPAY ==
[2025-08-29 10:12] VITALS: BP 119/64; PULSE 83; RESP 20; O2SAT 97; BMI 29.8
--- NOTE | 2025-08-29 10:32 | HO.ANESPROP2 ---
Documented by User: Catrachita Cabello NP 08/29/25 10:42 HPI - Anesthesia Eval Consult details Narrative: 55 yr old female for left total knee replacement scheduled for 09/28/25, seen in [facility] on 08/29. No recent illness No CP/SOB with standing, light walking at work 6 days per week Medically cleared by PCP 08/01/25 Never had anesthesia GERD: on daily PPI, reasonably well controlled per pt PMFSH Active Problems Active Problems: All Active Problems (Updated 08/29/25 @ 10:07 by Emilia Denson RN) Hamstring tightness of left lower extremity (Acute) Varus deformity of knee (Acute) Osteoarthritis of left knee (Acute) Mild anemia (Acute) GERD without esophagitis (Acute) Hypothyroidism (Acute) Past Medical History Medical History Arthritis Mild anemia GERD without esophagitis Hypothyroidism Family History Family history of problems with anesthesia: No Surgical History Surgical History No pertinent past surgical history History of Problems with Anesthesia: No Social History Social History Housing: Apartment Are you a primary group care worker to a significant other at home: No Do you presently have visiting nurse or other home services: No Patient Tobacco Use Status: Never used Tobacco e-Cigarette/Vaping Use: Never Used Use of substances other than those prescribed or required for medical reasons: No Have you been hit, kicked, punched, or otherwise hurt by someone within the past year? 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 - [employer] Meds Allergies Allergy/AdvReac Type Severity Reaction Status Date / Time Penicillins Allergy Intermediate Hives Verified 09/22/25 14:56 Home Medications ?Medication ?Instructions ?Recorded ?Confirmed ?Last Taken ?Type acetaminophen 500 mg tablet 1,000 mg PO Q6H PRN pain 08/29/25 08/29/25 Unknown History cholecalciferol (vitamin D3) 50 50 mcg PO BEDTIME 08/29/25 08/29/25 Unknown History mcg (2,000 unit) capsule ibuprofen 200 mg tablet 400 mg PO Q6H PRN Pain 08/29/25 09/28/25 09/20/25 History levothyroxine 50 mcg tablet 50 mcg PO QAM 08/29/25 09/28/25 09/28/25 History multivitamin-ferrous sulfate 18 mg 1 tab PO BEDTIME 08/29/25 08/29/25 Unknown History tablet (One Daily Multivitamin with Iron) omeprazole 20 mg capsule,delayed 20 mg PO QPM 08/29/25 08/29/25 Unknown History release Exam Height,Weight and Vital Signs: Height 5 ft 8 in Weight 89 kg Last Vital Signs Pulse 83 08/29/25 10:12 Resp 20 08/29/25 10:12 BP 119/64 08/29/25 10:12 Pulse Ox 97 08/29/25 10:12 O2 Del Method Room Air 08/29/25 10:12 Pertinent Lab Results Pertinent Lab Results: Laboratory Tests 07/27/25 06:20 WBC 3.9 L RBC 3.99 L Hgb 12.3 Hct 36.0 L Plt Count 354 Sodium 142 Potassium 3.7 Chloride 110 H Carbon Dioxide 25 BUN 12 Creatinine 0.71 Narrative Narrative: 07/2025 NSR, rate 84 Airway Mallampati Class: III TM Dist: >3cm Neck ROM: Full Loose/Missing/Broken Teeth: Yes, Upper (M) and Lower (M) Heart: RRR Lungs: CTAB Assessment and Plan Final Anesthetic Review Family History of Problems with Anesthesia: No History of Problems with Anesthesia: No Documented by User: Christophe Rouse MD 09/28/25 13:25 [facility] Past Medical History Medical History Arthritis Mild anemia GERD without esophagitis Hypothyroidism Surgical History Surgical History No pertinent past surgical history Social History Social History Housing: Apartment Are you a primary group care worker to a significant other at home: No Do you presently have visiting nurse or other home services: No Patient Tobacco Use Status: Never used Tobacco e-Cigarette/Vaping Use: Never Used Use of substances other than those prescribed or required for medical reasons: No Have you been hit, kicked, punched, or otherwise hurt by someone within the past year? 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 - [employer] Meds Allergies Allergy/AdvReac Type Severity Reaction Status Date / Time Penicillins Allergy Intermediate Hives Verified 09/22/25 14:56 Home Medications ?Medication ?Instructions ?Recorded ?Confirmed ?Last Taken ?Type acetaminophen 500 mg tablet 1,000 mg PO Q6H PRN pain 08/29/25 08/29/25 Unknown History cholecalciferol (vitamin D3) 50 50 mcg PO BEDTIME 08/29/25 08/29/25 Unknown History mcg (2,000 unit) capsule ibuprofen 200 mg tablet 400 mg PO Q6H PRN Pain 08/29/25 09/28/25 09/20/25 History levothyroxine 50 mcg tablet 50 mcg PO QAM 08/29/25 09/28/25 09/28/25 History multivitamin-ferrous sulfate 18 mg 1 tab PO BEDTIME 08/29/25 08/29/25 Unknown History tablet (One Daily Multivitamin with Iron) omeprazole 20 mg capsule,delayed 20 mg PO QPM 08/29/25 08/29/25 Unknown History release Exam Exam Date and Time: 09/28/25 Assessment and Plan Assessment Anesthesia Assessment: Anesthesia Plan Discussed and Chart Reviewed Final Anesthetic Review NPO: Yes ASA Class: II Final Preanesthetic Review: No Changes in Pt Med Stat, Meds/Allgs Chart Reviewed, Consent Obtained/Reviewed and Anes Risks/Benef Reviewed Patient Risk: Low Procedure Risk: Low Anesthetic Plan Anesthetic Plan: GA, MAC:, Spinal, Neuraxial Block: and Regional Block Disposition: Standard PACU
[2025-08-29 12:55] LABS: MRSA Nasal PCR NEGATIVE (Negative); SA Nasal PCR NEGATIVE (Negative)
[2025-09-28] VITALS (9 sets, daily range): BP systolic 97–124; BP diastolic 53–77; PULSE 65–91; RESP 12–19; TEMP 36–37.2; O2SAT 93–97; BMI 28.9; BMI 28.7
--- NOTE | ~2025-09-28 | XR_ITS ---
EXAMINATION: XR KNEE 1-2 VIEWS LEFT HISTORY: S/P Left TKA COMPARISON: Comparison is made with the prior examinations dated 09/22/2025 and 04/20/2024. FINDINGS: AP and lateral portable views of the left knee are submitted from the operating room at 5:27 PM. The patient is status post total knee arthroplasty. The orthopedic elements are in anatomic alignment. Postoperative changes are noted in the soft tissues. XR/XR knee LT 2V IMPRESSION: Status post left total knee arthroplasty. Electronically signed by: Eren Juarez MD 09/29/2025 06:59 AM ALF
[2025-09-28] MEDS: Lactated Ringers 1,000 ML 100 ML IVCONT ×2 (11:23→19:51)
[2025-09-28 11:39] LABS: Hematocrit 37.1 % (37.0-47.0); Hemoglobin 12.6 g/dl (12.0-16.0)
--- NOTE | 2025-09-28 12:38 | MHC.SHP ---
Pre-Procedural Eval Section A - 24 Hr Update-Section A only Date of Service: 09/28/25 The patient is an INPATIENT: No Changes since office visit: No Cold of Flu in the past 2 weeks, No New Medical Problems, No Changes in Medication and No Patient answered all questions The patient has been examined within 24 hours of the surgical procedure. The History & Physical has been completed within 30 days and I have reviewed it.: Yes Section B - Complete if H&P > 30 days Chief Complaint: Unilateral primary osteoarthritis, left knee Allergies: Allergies Allergy/AdvReac Type Severity Reaction Status Date / Time Penicillins Allergy Intermediate Hives Verified 09/22/25 14:56 Plan I have reviewed the history and physical and performed a pertinent physical examination on my patient. No changes have occurred unless specified. Time Spent With Patient Time: Total time managing care of this patient today ____ minutes.
--- NOTE | 2025-09-28 16:54 | P.BOP_ITS ---
Brief Operative Note Date of Service: 09/28/25 Pre-op diagnosis: Left knee OA Post-op diagnosis: same Procedure: Left TKA Implants: Marlene persona 6/D/12ps/35a cemented PS Surgeon: Sanket Webster MD Anesthesia: regional and spinal Was an Invoice Machine Operator used for this Procedure?: Yes Invoice Machine Operator: Nellie Peña Estimated blood loss (mL): 50 Tourniquet time (min): 65 IV fluids (mL): 1,000 Pathology: other Condition: stable Disposition: PACU
--- NOTE | 2025-09-28 18:39 | PHA.MEDREC ---
Addendum entered by Richar Beltran 09/28/25 18:51: Spoke with pt and she verified her medications; list matched what she confirmed. Original Note: Pharmacy Consult ? Medication Reconciliation Pharmacy has completed the medication reconciliation. Reviewed med rec done by nursing in pre-op
--- NOTE | 2025-09-28 18:47 | PC.NURSE ---
Patient arrived to unit from PACU via bed. Patient alert and oriented. Patient has numbness from bilateral hips to toes, patient is able to slightly wiggle bilateral toes but is unable to feeling nurses touch on bilateral lower extremities. Patient reports minimal pain at this time. Duong bandage dressing on left knee, clean, dry and intact with ice packs present. Patient educated to not use pillows under knees and knee raising application locked on bed. Bed alarm on, call montalvo in reach. Patient educated on fall risk status and to not get up without assistance and patient verbalized understanding.
[2025-09-28] MEDS: 0.9 % Sodium Chloride Flush 3 ML SYRINGE IVFLUSH (19:54)
[2025-09-28] MEDS: oxyCODONE HCl ER 10 MG TAB.ER.12H PO (19:56)
--- NOTE | 2025-09-28 22:36 | HO.PM.IMCN ---
History of Present Illness Data of Consult Service Date: 09/28/25 Requesting physician: Sanket Webster Primary Care Provider: RAMO Corral HPI Reason for consult: medical management pt is a 55 yo f with a pmhx significant for hypothyroid, GERD and anemia, now s/p L TKA, hospitalist consult placed for medical management. medical hx and medications reviewed. she denies any acute medical concerns including chest pain, SOB, nausea, vomiting, abd pain, headache, visual changes or urinary sx. Review of Systems Constitutional: Constitutional: Denies body ache(s), Denies chills, Denies fatigue and Denies headache(s) Eyes: Eyes: Denies change in vision ENT: Denies headache(s), Denies nasal congestion and Denies sore throat Cardiovascular: Cardiovascular: Denies chest pain, Denies rapid heart rate, Denies leg edema, Denies lightheadedness and Denies dyspnea Respiratory: Respiratory: Denies chest congestion, Denies cough, Denies dyspnea and Denies wheezing Gastrointestinal: Gastrointestinal: Denies abdominal pain, Denies diarrhea, Denies nausea and Denies vomiting Genitourinary: Genitourinary: Denies difficulty voiding, Denies dysuria and Denies urinary urgency Musculoskeletal: Musculoskeletal: Denies back pain Integumentary/Breasts: Skin/Breast: Denies rash Neurologic: Denies confusion and Denies headache(s) Psychiatric: Psychiatric: Denies confusion Endocrine: Endocrine: Denies fatigue Hematologic/Lymphatic: Hematologic/Lymphatic: Denies easy bleeding Allergic/Immunologic: Allergic/Immunologic: Denies wheezing [facility] Medical History Arthritis Mild anemia GERD without esophagitis Hypothyroidism Functional capacity: independent ambulation Surgical History No pertinent past surgical history Social History Household Members: None Housing: Apartment Are you a primary geriatric personal care aide to a significant other at home: No Do you presently have visiting nurse or other home services: No Patient Tobacco Use Status: Never used Tobacco e-Cigarette/Vaping Use: Never Used Use of substances other than those prescribed or required for medical reasons: No Have you been hit, kicked, punched, or otherwise hurt by someone within the past year? 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 - [employer] Meds Allergies Allergy/AdvReac Type Severity Reaction Status Date / Time Penicillins Allergy Intermediate Hives Verified 09/22/25 14:56 Active Medications: Current Medications Acetaminophen (Acetaminophen 325 Mg Tablet) 650 mg PO Q6H PRN PRN Reason: Pain, Mild 1-3,fever,headache Aspirin (Aspirin 325 Mg Tablet) 325 mg PO BID ON LICENSE OF [facility] Calcium Carbonate (Calcium Carbonate 750 Mg Tab.Chew) 750 mg PO Q6H PRN PRN Reason: Heartburn Celecoxib (Celecoxib 200 Mg Capsule) 200 mg PO BID ON LICENSE OF [facility] Last Admin: 09/28/25 19:56 Dose: 200 mg Docusate Sodium (Docusate Sodium 100 Mg Capsule) 100 mg PO BID ON LICENSE OF [facility] Last Admin: 09/28/25 19:56 Dose: 100 mg Hydromorphone HCl (Hydromorphone Hcl 1 Mg/Ml Syringe) 0.25 mg IVPUSH Q4H PRN; Protocol PRN Reason: Pain, Severe (Pain Scale 7-10) Lactated Ringer's (Lr) 1,000 mls @ 100 mls/hr IVCONT .Q10H ON LICENSE OF [facility] Last Admin: 09/28/25 21:14 Dose: Not Given Lactated Ringer's (Lr) 1,000 mls @ 100 mls/hr IVCONT .Q10H ON LICENSE OF [facility] Last Admin: 09/28/25 19:51 Dose: 100 mls/hr Levothyroxine Sodium (Levothyroxine Sodium 50 Mcg Tablet) 50 mcg PO DAILY@0600 ON LICENSE OF [facility] Last Admin: 09/28/25 19:58 Dose: Not Given Lorazepam (Lorazepam 0.5 Mg Tablet) 0.5 mg PO ONCE ONE Stop: 09/28/25 22:34 Magnesium Hydroxide (Milk Of Magnesia 30 Ml Oral.Susp) 30 ml PO DAILY PRN PRN Reason: Constipation Melatonin (Melatonin 3 Mg Tablet) 6 mg PO BEDTIME PRN PRN Reason: Insomnia Multivitamins/Vitamin C (Multivitamin Tablet) 1 tab PO BEDTIME ON LICENSE OF [facility] Last Admin: 09/28/25 19:56 Dose: 1 tab Omeprazole (Omeprazole 20 Mg Capsule.Dr) 20 mg PO DAILY@1630 ON LICENSE OF [facility] Last Admin: 09/28/25 19:56 Dose: 20 mg Ondansetron HCl (Ondansetron Hcl 4 Mg/2 Ml Vial) 4 mg IVPUSH Q8H PRN PRN Reason: Nausea and Vomiting Oxycodone HCl (Oxycodone Hcl Immed Release 5 Mg Tablet) 5 mg PO Q4H PRN PRN Reason: Pain, Moderate(Pain Scale 4-6) Oxycodone HCl (Oxycodone Hcl Er 10 Mg Tab.Er.12h) 10 mg PO BID ON LICENSE OF [facility] Last Admin: 09/28/25 19:56 Dose: 10 mg Sodium Chloride (0.9 % Sodium Chloride Flush 3 Ml Syringe) 3 ml IVFLUSH QSHIFT ON LICENSE OF [facility] Last Admin: 09/28/25 19:54 Dose: 3 ml Vitamin D (Cholecalciferol (Vitamin D3) 25 Mcg Tablet) 50 mcg PO BEDTIME ON LICENSE OF [facility] Last Admin: 09/28/25 19:57 Dose: 50 mcg Home Medications ?Medication ?Instructions ?Recorded ?Confirmed ?Last Taken ?Type acetaminophen 500 mg tablet 1,000 mg PO Q6H PRN pain 08/29/25 08/29/25 Unknown History cholecalciferol (vitamin D3) 50 50 mcg PO BEDTIME 08/29/25 08/29/25 Unknown History mcg (2,000 unit) capsule ibuprofen 200 mg tablet 400 mg PO Q6H PRN Pain 08/29/25 09/28/25 09/20/25 History levothyroxine 50 mcg tablet 50 mcg PO DAILY@0600 08/29/25 09/28/25 09/28/25 History multivitamin-ferrous sulfate 18 mg 1 tab PO BEDTIME 08/29/25 08/29/25 Unknown History tablet (One Daily Multivitamin with Iron) omeprazole 20 mg capsule,delayed 20 mg PO DAILY@1630 08/29/25 09/28/25 Unknown History release Physical Exam Vital Signs and Narrative: Vital Signs: Last Vital Signs Temp 96.8 F 09/28/25 20:00 Pulse 66 09/28/25 20:00 Resp 19 09/28/25 20:00 BP 120/68 09/28/25 20:00 Pulse Ox 96 09/28/25 20:00 O2 Del Method Room Air 09/28/25 20:00 BMI result Body Mass Index 28.7 General: AOx3, no acute distress Resp: CTA bilaterally CVS: S1, S2, RRR GI: +BS, NT, no distention Skin: Warm, dry Neuro: Cranial nerves II-XII grossly intact bilaterally. Motor grossly intact bilaterally Extremities: No pitting edema. sensation intact BLE, pedal pulses intact equally bilaterally Psych: Appropriate affect Const: General: No confusion Orientation/consciousness: No confusion Neuro: General: No confusion Results Labs 09/28/25 11:30 Assessment and Plan (1) Status post total left knee replacement: Status: Acute Plan pt is a 55 yo f with a pmhx significant for hypothyroid, GERD and anemia, now s/p L TKA, hospitalist consult placed for medical management. s/p L TKA - POD 0 - plan per ortho hypothyroid - levothyroxine GERD - omeprzole, TUMS PRN anemia, chronic - H+H normal Thank you for allowing me to participate in the pt's care. Signing off. Please contact the medical team if any questions or concerns.
[2025-09-29 03:20] VITALS: BP 121/64; PULSE 72; RESP 16; TEMP 36.1; O2SAT 96
[2025-09-29] MEDS: Lactated Ringers 1,000 ML 100 ML IVCONT (04:53)
[2025-09-29] MEDS: oxyCODONE HCl Immed Release 5 MG TABLET PO ×2 (04:56→14:52)
--- NOTE | 2025-09-29 05:19 | PC.NURSE ---
Pt seen on bed at shift change eating dinner, left knee thao wrap dressing CDI, + CMS, minimal 2/10 leg pain with tingling, ice pack applied, up to the BR and voided. Pt c/o upset stomach later of the night, referred to Nellie Peña, Hospitalist consulted, Anneliese came and see the pt, Tums ordered, Lorazepam added for sleep, slept few hours. Awaken after midnight with increasing left knee pain,prn Dilaudid given with good effect, pt later c/o nausea and upset stomach, prn Zofran IV given, pt felt better as verbalized.
[2025-09-29 05:44] LABS: MANUAL DIFF FLAG NO
[2025-09-29 05:48] LABS: Hematocrit 33.8 % (37.0-47.0); Hemoglobin 11.6 g/dl (12.0-16.0); Imm Gran Abs Auto 0.04 X10*3/uL (0.00-0.03); Imm Gran Pct Auto 0.5 % (0.0-0.4); Lymphocytes Absolute Auto 0.7 X10*3/uL (1.2-4.9); Mean Corpuscular HGB Conc 34.3 g/dl (31.0-35.0); Mean Corpuscular Hemoglobin 30.9 pg (27.0-33.0); Mean Corpuscular Volume 89.9 fL (80.0-98.0); NRBC Abs Auto 0.000 X10*3/uL (0.0-0.012); NRBC Pct Auto 0.0 /100WBC (0.0-0.2); Platelet Count 254 X10*3/uL (160-400); Red Blood Count 3.76 X10*6/uL (4.20-5.50); White Blood Count 8.7 X10*3/uL (4.8-10.8)
[2025-09-29 06:04] LABS: Anion Gap 12 (12-20); Blood Urea Nitrogen 11 mg/dL (9-16); Calcium 8.9 mg/dL (8.4-10.2); Carbon Dioxide 25 mmol/L (22-29); Chloride 102 mmol/L (96-108); Creatinine Clr Calc Pharmacy 131.5; Estimated Glomerular Filt Rate > 60; Potassium 3.5 mmol/L (3.3-5.1); Sodium 135 mmol/L (135-145)
[2025-09-29 07:40] VITALS: BP 102/97; PULSE 74; RESP 16; TEMP 36.1; O2SAT 96
--- NOTE | 2025-09-29 08:17 | W.MHC.F2F ---
Service Date Service Date: 09/29/25 Encounter Date of encounter: 09/29/25 Reasons for Services Signs and symptoms assessed: Weakness, poor balance, poor gait mechanics Reason for physical therapy: home safety and mobility, therapeutic exercises, restore joint function, gait/transfer training, ADL training and energy conservation Reason for occupational therapy: home safety and mobility, therapeutic exercises, restore joint function, gait/transfer training, ADL training and energy conservation Overseeing Care: Sanket Webster Homebound: Leaving the home is medically contraindicated at this time without the asist of a device and/or another person due th the listed conditions above and below. Reason homebound: unsteady gait / fall risk, pain with ambulation, poor balance / fall risk and unable to drive Homebound supporting statement: Pt. is considered home bound due to recent surgery. Unable to drive, poor balance, poor gait mechanics. Certification: Based on the above findings, I certify that this patient is confined to the home and needs intermittent prison care, physical therapy and/or speech therapy, or continues to need occupational therapy. The patient is under my care, and I have initiated the establishment of the plan of care. The patient will be followed by a physician who will periodically review the plan of care. Time Spent With Patient Time: Total time managing care of this patient today ____ minutes.
--- NOTE | 2025-09-29 08:17 | PM.DS ---
DS: Providers Provider Date of Service: 09/29/25 Date of discharge: 09/29/25 Primary care physician: RAMO Corral Consults: 09/28/25 18:33 Consult to Case Management Routine Comment: Home with services Consult to Hospitalist Routine Comment: Consulting Provider: [facility] [place] [facility] Reason For Exam: Routine medical management DS: Diagnosis Discharge Diagnosis (1) Status post total left knee replacement: Status: Acute DS: Summary Hospital Course Hospital Course: The patient underwent a successful left total knee arthroplasty on 09/28/[address] Webster, was transferred to PACU and then to the floor to recover. During their stay, their vitals were stable, afebrile at 96.9 . Labs were unremarkable, H/H 11.6/33.8. POD 1 she was started on aspirin 325 mg p.o. b.i.d. for DVT ppx, they also received Physical Therapy services twice a day. Physical therapy should include gait training, ROM to tolerance and quad strength. She is WBAT. Prior to discharge, her dressing was clean dry and intact. The Aquacel dressing should remain intact and dry at all times. Any concerns with the dressing, please contact orthopedic office. No showering. The plan is to be discharged home with vna Time Attestation Discharge Coordination Time (in mins): 30 Quality: Safe Use of Opioids Does Pt have an Active Cancer Diagnosis on the Problem List?: No Quality: Stroke Does the patient have a stroke diagnosis?: No Physical Exam Vital Signs: Vital Signs: Last Vital Signs Temp 96.9 F 09/29/25 07:40 Pulse 74 09/29/25 07:40 Resp 16 09/29/25 07:40 BP 102/97 H 09/29/25 07:40 Pulse Ox 96 09/29/25 07:40 O2 Del Method Room Air 09/29/25 07:40 BMI result Body Mass Index 28.7 DS: Data Data Completed and Pending Pending studies at discharge: Pending at discharge 09/28/25 16:34 Surgical [PTH] Routine Labs on day of discharge: Laboratory Results - last 24 hr 09/28/25 09/29/25 11:30 05:27 WBC 8.7 RBC 3.76 L Hgb 12.6 11.6 L Hct 37.1 33.8 L MCV 89.9 MCH 30.9 MCHC 34.3 RDW 11.3 Plt Count 254 MPV 9.2 L Immature Gran % (Auto) 0.5 H Neut % (Auto) 81.1 H Lymph % (Auto) 8.1 L [place] % (Auto) 9.5 Eos % (Auto) 0.3 Baso % (Auto) 0.5 Lymph # (Auto) 0.7 L [place] # (Auto) 0.8 Eos # (Auto) 0.0 Baso # (Auto) 0.0 Abs Immat Gran (auto) 0.04 H Absolute Neuts (auto) 7.1 Absolute Nucleated RBC 0.000 Nucleated RBC % (auto) 0.0 Sodium 135 Potassium 3.5 Chloride 102 Carbon Dioxide 25 Anion Gap 12 BUN 11 Creatinine 0.56 Estim Creat Clear Calc 131.5 Estimated GFR > 60 Fasting Glucose 128 H Calcium 8.9 D Discharge Plan Discharge Patient Disposition: Home Health Service Referrals: [facility] [Outside] - 1 Week Referral Note: HOME SERVICES FOR PHYSICAL THERAPY- A THERAPIST WILL CALL YOU TO SET UP FIRST VISIT. Edith Sharpe PA [Primary Care Provider, Internal Medicine] - 1 Week Discharge Medications: New acetaminophen 325 mg Tablet 650 mg PO Q6H PRN (Reason: Pain, Mild 1-3,Fever,Headache) 30 Days Qty: 240 0RF aspirin 325 mg Tablet 325 mg PO BID 42 Days Qty: 84 0RF celecoxib 200 mg Capsule 200 mg PO BID 30 Days Qty: 60 0RF docusate sodium 100 mg Capsule 100 mg PO BID 30 Days Qty: 60 0RF oxycodone 5 mg Tablet 5 mg PO Q4H PRN (Reason: Pain, Moderate(Pain Scale 4-6)) 7 Days Qty: 42 0RF Rx Instructions: Partial Fill upon patient request. Continued levothyroxine 50 mcg tablet 50 mcg PO DAILY@0600 omeprazole 20 mg capsule,delayed release(DR/EC) 20 mg PO DAILY@1630 Rx Instructions: takes around 5:00 pm cholecalciferol (vitamin D3) 50 mcg (2,000 unit) capsule 50 mcg PO BEDTIME (DME) Folding Front Wheeled walker See Rx Instructions .ROUTE .MEDSUPPLY Qty: 1 0RF Rx Instructions: Duration: 99 days Discontinued acetaminophen 500 mg tablet 1,000 mg PO Q6H PRN (Reason: pain) ibuprofen 200 mg Tablet 400 mg PO Q6H PRN (Reason: Pain) No Action One Daily Multivitamin-Iron 18 mg iron tablet 1 tab PO BEDTIME Rx Instructions: with food Discharge Orders: Discharge Order (Routine); Ordered 09/29/25 Ordered By: Nellie Peña Diet: Regular diet Activity on Discharge: Use cane or walker Activity Restrictions/Additional Instructions: Physical Therapy for ROM 0-120, quad strength, gait training. Use walker for ambulation Limit stair climbing No shower or tub bath No driving for 6 weeks Continue anticoagulant Keep Aquacel dressing clean, dry and intact. Follow up with orthopedics in 2 weeks -Bandage/Incision Site Care: -Ice 20mins at a time -Make sure you use a towel or cloth on your skin as a barrier -DO NOT remove the bandage -Keep Bandage clean, dry and intact -Do not get the bandage wet: -No tub bath, pools or hot tubs -If there are any concerns regarding the bandage please call orthopedics: [phone] -Knee Precautions: -Refrain from putting pillows under the knee -Keep leg straight while resting the knee -Avoid low chairs and deep couches -Use supportive shoes with nonslip soles -Physical Therapy: -Patient is WBAT with the use of a walker -Range of Motion: 0-120 degrees. -Strengthening: Quadriceps and hip muscles -Walking: Gait training and gradually increasing distance with walker -Ankle pumps and incentive spirometry to limit the risk of blood clot -Diet: -Resume regular diet as tolerated. -Drink plenty of fluids and eat a high-fiber foods to avoid constipation -This is a common side effect of pain medication) -Take stool softeners as prescribed -Blood Clot Prevention: -Take the prescribed blood thinner (Aspirin) as directed for 6 weeks -Perform ankle pumps and walk frequently with the walker and assistance if needed -Report calf pain, swelling, or shortness of breath immediately Print Language: Citizen Of [place] Discharge Date/Time: 09/29/25 16:19
[2025-09-29] MEDS: oxyCODONE HCl ER 10 MG TAB.ER.12H PO (08:25)
--- NOTE | 2025-09-29 08:53 | PM.PNORT ---
Subjective Subjective Date of Service: 09/29/25 Interval history: POD1 s/p LTKA Patient is resting in bed comfortably No overnight events Pain is reportedly unmanaged No additional complaints Physical Exam Vital Signs: Vital Signs: Last Vital Signs Temp 96.9 F 09/29/25 07:40 Pulse 74 09/29/25 07:40 Resp 16 09/29/25 07:40 BP 102/97 H 09/29/25 07:40 Pulse Ox 96 09/29/25 07:40 O2 Del Method Room Air 09/29/25 07:40 BMI result Body Mass Index 28.7 Const: General: cooperative, healthy appearing and no acute distress Resp: Effort & Inspection: normal respiratory effort and able to speak in complete sentences Extrem: Other: left knee dressing is c/d/i. Able to dorsi/plantar flex. Calf is supple and nontender. Sensation intact. Pedal pulse intact. Psych: Appearance: grossly normal Mental Status: mental status grossly normal Attitude: cooperative Procedures Date of Service Date of Service: 09/29/25 Progress Note: A&P Assessment and plan (1) Status post total left knee replacement: Status: Acute Plan Continue pain mgmnt Begin ASA for dvt ppx begin PT/OT for LTKA Dispo planning-Pending PT eval, pain mgmnt Time Spent With Patient Time: Total time managing care of this patient today ____ minutes. Quality Stroke Does the patient have a stroke diagnosis?: No VTE Prior VTE?: No VTE Risk Level:: Medical - moderate - high VTE Device Contraindication: N/A - Device Ordered VTE Drug Contraindication: N/A - Med Ordered
--- NOTE | 2025-09-29 09:20 | HO.POSTANES ---
Post Anesthesia Evaluation Post Anesthesia Evaluation Date of Service: 09/29/25 Vital Signs: Vital Signs Temp Pulse Resp BP Pulse Ox O2 Del Method 09/29/25 07:40 96.9 F 74 16 102/97 H 96 Room Air 09/29/25 03:20 96.9 F 72 16 121/64 96 Room Air Anesthesia: Spinal Mental Status: Awake Pain Control: Satisfactory Nausea/Vomiting: None Hydration: Adequate Anesthesia-Related Issues: No Anes. Related Issues
--- NOTE | 2025-09-29 09:40 | MHC.CM.PN ---
CM MET WITH PT AT BEDSIDE. PT LIVES ALONE AND USES A [facility]E FOR MOBILITY. + DRIVES AND IS EMPLOYED P/T. NO SERVICES. PT DECLINES COMPLETING A HCP AT THIS TIME. PCP FAVOILA DOYLE DP: HOME WITH NEW [facility] FOR P.T. SERVICES. PT WILL BE STAYING WITH AUNT AT [address] [place] [address] FOR RECUPERATION. PT'S SISTER WILL TRANSPORT HOME. CM WILL CONTINUE TO FOLLOW.
--- NOTE | 2025-09-29 15:26 | MHC.CM.PN ---
DP: PT HAS BEEN MEDICALLY CLEARED FOR DC HOME WITH NEW [facility] FOR P.T. [facility] NOTIFIED OF TODAY'S DC. PT'S SISTER WILL TRANSPORT.
[2025-09-29 15:38] VITALS: BP 118/71; PULSE 87; RESP 16; TEMP 37.1; O2SAT 98
--- NOTE | 2025-09-30 15:10 | P.OP_ITS ---
Operative Note Operative Note Date of Service: 09/28/25 Narrative: Date of Service: 09/28/25 Pre-op diagnosis: Left knee OA Post-op diagnosis: same Procedure: Left TKA Implants: Marlene persona 6/D/12ps/35a cemented PS Surgeon: Sanket Webster MD Anesthesia: regional and spinal Was an Orthotic/Prosthetic Clinician used for this Procedure?: Yes Orthotic/Prosthetic Clinician: Nellie Peña Estimated blood loss (mL): 50 Tourniquet time (min): 65 IV fluids (mL): 1,000 Pathology: other Condition: stable Disposition: PACU Procedure in detail: The patient was brought to the operating room and prepped and draped in standard sterile fashion. A time-out was called to identify proper site proper procedure proper surgeon and IV antibiotics were administered. 1 g of IV tranexamic acid was administered. I began by making a midline incision to the retinaculum and performed a medial paripatellar arthrotomy. The patella was translated laterally and the knee was flexed up. There was medial compartment eburnation and varus alignment. I performed a small medial peel and resected the infrapatellar fat pad. Using the custom cutting blocks I placed the femoral block using the 3D model on the back table. I placed my proximal pins and then drilled for by cutting block. My distal femoral cutting block was then placed a nd an catrachita wing was used to confirm bony resection matched the pre operative template. I then made my anterior femoral cut and placed a size 6 cutting block. There was an anterior femoral osteophyte and so I elected to place 6 femur as there was sufficient room. A 6 cutting block was then placed and I made my anterior posterior and chamfer cuts protecting the soft tissues at all times. I then made my box but removing the PCL. I then turned my attention to the tibia. I used the custom cutting block over the anterior tibia and a model was used on the back table to confirm placement. A drop letty was also used to insure alignment. I then made my distal tibial cut in while protecting the posterior soft tissues at all times. An extension block was used to confirm appropriate amount of bony resection. I then sized a D tibia and once I was satisfied that there was complete tibial coverage I placed my trial and with the trial femur in place took the knee through range of motion. I was satisfied with the extension and flexion as well as the balance at 0, 30 and 90 degrees. I then turned my attention to the patella where I removed 10mm from the undersurface of the patella and then trialled a 35s patellar button. Again the knee was taken through range of motion I was satisfied with the tracking. I then prepared the tibia with a drill and punch. A femoral bone plug was placed and the knee was irrigated copiously. A Werewolf cautery wand was used to maintain hemostasis over meniscal beds, the gutters and peripatellar soft tissues. 2 bags of bone cement were mixed on the back table using 3rd Gen cementation technique. I then cemented the patella, tibia and femur in standard fashion. Axial compression and a clamp were used while the cement dried. Once the cement was hard on the back table all excess cement was removed and I trialled different inserts until I selected a #12ps insert. The final insert was placed and local TXA was administered. The knee was then closed with a running Quill suture, a 3 0 Vicryl and art on the skin. Patient was then placed in sterile dressing and brought to recovery room in stable condition there were no known complications.
== END 2025-09-29 16:19 | disposition home health service (06) ==
LOC: HO.SSS 10:51 → HO.S3 18:17
PROVIDERS: Physician Assistant; PCP Physician Assistant Medical; Visit Provider Orthopaedic Surgery
PROC: (CPT 27447; principal; 2025-09-28 14:10)
DX: M17.12 Unilateral primary osteoarthritis, left knee (principal); M25.562 Pain in left knee; M25.462 Effusion, left knee; M21.162 Varus deformity, not elsewhere classified, left knee; R26.2 Difficulty in walking, not elsewhere classified; R26.9 Unspecified abnormalities of gait and mobility; M62.89 Other specified disorders of muscle; D64.9 Anemia, unspecified; E03.9 Hypothyroidism, unspecified; K21.9 Gastro-esophageal reflux disease without esophagitis; Z79.1 Long term (current) use of non-steroidal anti-inflammatories (NSAID); Z79.899 Other long term (current) drug therapy; Z88.0 Allergy status to penicillin
CPT/HCPCS: 27447; 36415; 73560; 80048; 85014; 85018; 85025; 86850; 86900; 86901; 87640; 87641; 88305; 88311; 97162; 97530; C1713; C1776; J0131; J0690; J1171; J2003; J2151; J2250; J2405; J2704; J2795; J3010; J7120

== ENCOUNTER → 2025-09-28 10:51 | Outpatient (BNV) | payer BC, SELFPAY | PROVIDERS: PCP Physician Assistant Medical; Visit Provider Orthopaedic Surgery | DX: Z47.1 Aftercare following joint replacement surgery (principal); Z96.652 Presence of left artificial knee joint | CPT/HCPCS: 27447; 99024 ==

== ENCOUNTER → 2025-09-28 10:51 | Outpatient (BNV) | payer BC, SELFPAY | PROVIDERS: PCP Physician Assistant Medical; Visit Provider Physician Assistant | DX: Z96.652 Presence of left artificial knee joint (principal) | CPT/HCPCS: 99252 ==

== ENCOUNTER → 2025-09-28 17:03 | Outpatient (BNV) | payer BC, SELFPAY | PROVIDERS: PCP Physician Assistant Medical; Visit Provider Radiology Diagnostic Radiology | DX: Z96.652 Presence of left artificial knee joint (principal) | CPT/HCPCS: 73560 ==

== ENCOUNTER 2025-10-13 09:11 | Outpatient (AMB) | payer BC, SELFPAY ==
--- NOTE | 2025-10-13 09:14 | A.OFFVIS_ITS ---
Intake Visit Reasons: 2WKPO: L TKA w/NE 09/28/25 Intake Note: Natalya is a 55 year old female who presents today for a post operative appointment status post left total knee arthroplasty done on 09/28/[address] Webster. Patient reports she is doing well, her pain is worse at night and take her medication when needed. Allergies Penicillins Allergy (Intermediate, Verified 10/13/25 09:21) Hives HPI HPI 2WKPO: L TKA w/NE 09/28/25: Details: Ms. Hewitt is a 55-year-old female who presents to the office today status post left TKA performed on 09/28/[address] Webster. Overall patient is doing very well. She has been working with home VNA services and has a 1st outpatient physical therapy appointment scheduled for Friday. Patient states she is she is only taking her narcotic pain medications as night as needed. Her pain is well managed. No additional complaints. 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 No surrounding erythema or drainage. Pyote intact. Range of motion 0-105 degrees. Difficulty with performing straight leg raise due to quad weakness. No palpable quad defect. Able to dorsiflex and plantar flex. Sensation intact. Psych Appearance: grossly normal Mental Status: mental status grossly normal Attitude: cooperative Assessment & Plan Assessment & Plan (1) Status post total left knee replacement: Code(s): Z96.652 - Presence of left artificial knee joint Category: Surgical Plan Ms. Hewitt is a 55-year-old female who presents to the office today status post left TKA performed on 09/28/[address] Webster. Overall patient is doing very well. She has been working with home VNA services and has a 1st outpatient physical therapy appointment scheduled for Friday. Patient states she is she is only taking her narcotic pain medications as night as needed. Her pain is well managed. No additional complaints. Dr. Webster was available to see the patient with me in the office today. Her art are removed and Steri-Strips were applied. She will transition to outpatient physical therapy beginning Friday. She does have some quad weakness on exam today in which that will be the focus at physical therapy as well as range of motion. She will continue anticoagulation for a total of 6 weeks postoperatively. She will follow up with Dr. Webster 4 weeks, sooner if needed. Coding Level of Care Code Global (67877) Diagnoses Status post total left knee replacement Z96.652
== END 2025-10-13 09:53 | disposition home or self-care (01) ==
LOC: HO.HOS 09:12
PROVIDERS: PCP Internal Medicine; Visit Provider Physician Assistant
DX: Z96.652 Presence of left artificial knee joint (principal)
CPT/HCPCS: 99024